=== PATIENT | female | born 2000 | race Caucasian/White ===

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

== ENCOUNTER → 2022-12-13 | Outpatient (CLI) | payer OTHER ==
[2022-12-13 15:32] LABS: HEMATOCRIT 39.8 % (36.0-47.0); MEAN CORPUSCULAR HEMOGLOBIN 28.1 pg (27.0-33.0); MEAN CORPUSCULAR HGB CONC 32.7 g/dl (32.0-36.5); MEAN CORPUSCULAR VOLUME 86.1 fl (80.0-96.0); PLATELET COUNT, AUTOMATED 272 10^3/uL (150-450); RED BLOOD COUNT 4.62 10^6/uL (4.00-5.40); WHITE BLOOD COUNT 9.9 10^3/uL (4.0-10.0)
[2022-12-13 16:48] LABS: HIV 1&2 SCREEN ATELLICA NEGATIVE (NEGATIVE)
[2022-12-13 18:49] LABS: GC DNA AMPLIFICATION NEGATIVE (NEGATIVE)
== END ==
LOC: M PLALAB 13:11
PROVIDERS: ATTEND Specialist
DX: Z34.01 Encounter for supervision of normal first pregnancy, first trimester (principal)

== ENCOUNTER 2023-02-18 19:32 | Outpatient (CLI) | payer OTHER ==
[~2023-02-18] VITALS: Ht 154.9 cm; Wt 53.8 kg
[2023-02-18] MEDS ORDERED: PRENTAB9 PO (19:47)
[2023-02-18 19:48] VITALS: BP 123/80
[2023-02-18] MEDS ORDERED: HOME MED LIST COMPLETE! XX SCH (19:50)
== END 2023-02-18 20:06 | disposition home or self-care (01) ==
LOC: M LDO 19:32
PROVIDERS: ATTEND Obstetrics & Gynecology
DX: O36.8120 Decreased fetal movements, second trimester, not applicable or unspecified (principal); Z04.1 Encounter for examination and observation following transport accident; Z3A.20 20 weeks gestation of pregnancy
CPT/HCPCS: 59025; 76815; G0463

== ENCOUNTER → 2023-02-21 | Outpatient (CLI) | payer OTHER ==
[~2023-02-21] MED LIST changes: +PRENTAB9 PO
== END ==
LOC: M WHC 10:29
PROVIDERS: ATTEND Obstetrics & Gynecology
DX: Z34.92 Encounter for supervision of normal pregnancy, unspecified, second trimester (principal)

== ENCOUNTER → 2023-05-02 | Outpatient (CLI) | payer OTHER ==
[2023-05-02 14:01] LABS: HEMATOCRIT 30.9 % (36.0-47.0); HEMOGLOBIN 9.9 g/dl (12.0-15.5); MEAN CORPUSCULAR HEMOGLOBIN 28.2 pg (27.0-33.0); PLATELET COUNT, AUTOMATED 216 10^3/uL (150-450); RED BLOOD COUNT 3.51 10^6/uL (4.00-5.40); WHITE BLOOD COUNT 13.5 10^3/uL (4.0-10.0)
[2023-05-02 15:18] LABS: GC DNA AMPLIFICATION NEGATIVE (NEGATIVE)
== END ==
LOC: M PLALAB 10:31
PROVIDERS: ATTEND Advanced Practice Midwife
DX: Z34.02 Encounter for supervision of normal first pregnancy, second trimester (principal)

== ENCOUNTER 2023-05-07 16:00 | Outpatient (CLI) | payer OTHER ==
[~2023-05-07] VITALS: Ht 154.9 cm; Wt 55.0 kg
[2023-05-07 16:12] VITALS: BP 121/70; O2SAT 99
[2023-05-07] MEDS ORDERED: LACTATED RINGER'S 1000 ML IV ONE (16:35)
[2023-05-07] MEDS ORDERED: LR 1,000 ML IV SCH (16:40)
[2023-05-07 16:58] LABS: HEMATOCRIT 30.8 % (36.0-47.0); HEMOGLOBIN 9.9 g/dl (12.0-15.5); MEAN CORPUSCULAR HEMOGLOBIN 27.5 pg (27.0-33.0); MEAN CORPUSCULAR HGB CONC 32.1 g/dl (32.0-36.5); MEAN CORPUSCULAR VOLUME 85.6 fl (80.0-96.0); PLATELET COUNT, AUTOMATED 213 10^3/uL (150-450); WHITE BLOOD COUNT 13.9 10^3/uL (4.0-10.0)
[2023-05-07] MEDS ORDERED: HOME MED LIST COMPLETE! XX SCH (17:00)
[2023-05-07 17:28] LABS: INR 1.13; PROTHROMBIN TIME 14.1 SECONDS (12.5-14.5)
[2023-05-07 17:29] LABS: PARTIAL THROMBOPLASTIN TIME 27.8 SECONDS (24.8-34.2)
[2023-05-07 18:00] VITALS: BP 132/72
== END 2023-05-07 19:41 | disposition home or self-care (01) ==
LOC: M LDO 16:00
PROVIDERS: ATTEND Advanced Practice Midwife
DX: O99.810 Abnormal glucose complicating pregnancy (principal); Z88.6 Allergy status to analgesic agent; Z04.1 Encounter for examination and observation following transport accident; V43.92XA Unspecified car occupant injured in collision with other type car in traffic accident, initial encounter; Y92.9 Unspecified place or not applicable; Z3A.31 31 weeks gestation of pregnancy
CPT/HCPCS: 59025; 76815; 76819; 76820; 85027; 85384; 85460; 85610; 85730; G0463

== ENCOUNTER 2023-05-07 19:52 | Emergency (ER) | payer OTHER ==
[~2023-05-07] VITALS: Ht 154.9 cm; Wt 54.0 kg
[2023-05-07 20:01] VITALS: BP 127/68; TEMP 97; O2SAT 98
== END 2023-05-07 21:16 | disposition left against medical advice (07) ==
LOC: M ED 19:52
DX: Z53.21 Procedure and treatment not carried out due to patient leaving prior to being seen by health care provider (principal)

== ENCOUNTER → 2023-05-16 | Outpatient (CLI) | payer OTHER | LOC: M LAB 08:26 | PROVIDERS: ATTEND Advanced Practice Midwife | DX: O99.810 Abnormal glucose complicating pregnancy (principal) ==

== ENCOUNTER 2023-06-11 08:22 | Inpatient (IN) | payer MEDICAID, OTHER ==
[~2023-06-11] VITALS: Ht 154.9 cm; Wt 63.5 kg
[2023-06-11] VITALS (13 sets, daily range): BP systolic 126–156; BP diastolic 71–106; O2SAT 94–98
[2023-06-11] MEDS ORDERED: IRON27TA2 PO (08:56)
[2023-06-11] MEDS ORDERED: HOME MED LIST COMPLETE! XX SCH (09:10)
[2023-06-11] MEDS ORDERED: LACTATED RINGER'S 1000 ML IV STA (09:17)
[2023-06-11] MEDS ORDERED: BETAMETHASONE SOLUSPAN 6MG/ML 5ML VIAL IM ONE (09:20)
[2023-06-11] MEDS ORDERED: LR 1,000 ML IV SCH (09:20)
[2023-06-11] MEDS ORDERED: LIDOCAINE 1% MDV 20ML VIAL INFIL PRN (09:20)
[2023-06-11] MEDS ORDERED: CARBOPROST TROMETHAMINE 250 MCG/ML AMP IM PRN (09:20)
[2023-06-11] MEDS ORDERED: TRANEXAMIC ACID INJection 1,000 MG in NS 100 ML IV PRN (09:20)
[2023-06-11] MEDS ORDERED: OXYTOCIN DRIP 30 UNITS in IV 1 EA IV PRN ×4 (09:20)
[2023-06-11] MEDS ORDERED: OXYTOCIN INJ 10UNITS/ML 1ML VIAL IM PRN (09:20)
[2023-06-11 09:54] LABS: HEMATOCRIT 36.9 % (36.0-47.0); HEMOGLOBIN 12.3 g/dl (12.0-15.5); MEAN CORPUSCULAR HEMOGLOBIN 28.4 pg (27.0-33.0); MEAN CORPUSCULAR HGB CONC 33.3 g/dl (32.0-36.5); MEAN CORPUSCULAR VOLUME 85.2 fl (80.0-96.0); PLATELET COUNT, AUTOMATED 180 10^3/uL (150-450); RED BLOOD COUNT 4.33 10^6/uL (4.00-5.40)
[2023-06-11 10:20] LABS: LDH LACTATE DEHYDROGENASE 219 U/L (120-246)
[2023-06-11 10:21] LABS: ALT/SGPT 14 U/L (7.0-40); AST/SGOT 23 U/L (<34); BILIRUBIN,TOTAL 0.4 MG/DL (0.3-1.2); CREATININE FOR GFR 0.54 MG/DL (0.55-1.30); GLOMERULAR FILTRATION RATE > 60.0 (>60)
[2023-06-11 11:01] LABS: URIC ACID 5.2 MG/DL (3.1-7.8)
[2023-06-11] MEDS ORDERED: ACETAMINOPHEN 500 MG TAB PO PRN (11:25)
[2023-06-11] MEDS ORDERED: RHOGAM 300MCG (1500IU) INJ IM SCH (11:25)
[2023-06-11] MEDS ORDERED: DIBUCAINE 1% OINTMENT 30GM TOP PRN (11:25)
[2023-06-11] MEDS ORDERED: DOCUSATE SODIUM 100MG CAPSULE PO PRN (11:25)
[2023-06-11] MEDS ORDERED: ACETAMINOPHEN TAB 650MG DOSE (2X325MG) PO PRN (11:25)
[2023-06-11] MEDS ORDERED: IBUPROFEN 600MG TAB PO PRN (11:25)
[2023-06-12 06:00] VITALS: BP 129/80; O2SAT 98
[2023-06-12] MEDS: PRENATAL VITAMINS CHEWABLE TABLET PO SCH (08:49)
[2023-06-12 18:00] VITALS: BP 129/73; O2SAT 96
[2023-06-13 06:00] VITALS: BP 134/80
[2023-06-13] MEDS: PRENATAL VITAMINS CHEWABLE TABLET PO SCH (08:44)
[2023-06-13] MEDS ORDERED: MEASLES,MUMPS,RUBELLA VACCINE INJ (MMR-II) SC.IMMUN ONE (09:00)
== END 2023-06-13 14:52 | disposition home or self-care (01) | DRG 560 ==
LOC: M LDO 08:22 → M LDI 09:16 → M OBS 14:30
PROVIDERS: ADMIT Advanced Practice Midwife; ATTEND Advanced Practice Midwife
PROC: 10E0XZZ Delivery of Products of Conception, External Approach (ICD-10-PCS; principal; 2023-06-11)
PROC: 0HQ9XZZ Repair Perineum Skin, External Approach (ICD-10-PCS; 2023-06-11)
DX: O60.14X0 Preterm labor third trimester with preterm delivery third trimester, not applicable or unspecified (principal); Z3A.36 36 weeks gestation of pregnancy; Z88.6 Allergy status to analgesic agent; O24.425 Gestational diabetes mellitus in childbirth, controlled by oral hypoglycemic drugs; Z37.0 Single live birth; O69.3XX0 Labor and delivery complicated by short cord, not applicable or unspecified; O70.0 First degree perineal laceration during delivery

== ENCOUNTER → 2023-09-19 | Outpatient (REF) | payer SELFPAY ==
[~2023-09-19] MED LIST changes: +IRON27TA2 PO
[2023-09-19 16:57] LABS: THYROID STIMULATING HORMONE 1.324 uIU/ML (0.55-4.78)
[2023-09-19 16:59] LABS: HEMOGLOBIN A1c 5.8 % (4.0-6.0)
[2023-09-19 17:19] LABS: BASO % 0.3 % (0.0-1.0); EOS # 0.2 10^3/uL (0.0-0.5); EOS % 1.7 % (0.0-3.0); HEMATOCRIT 43.4 % (36.0-47.0); HEMOGLOBIN 13.6 g/dl (12.0-15.5); LYMPH # 2.5 10^3/uL (1.5-5.0); LYMPH % 28.8 % (24.0-44.0); MEAN CORPUSCULAR HEMOGLOBIN 27.4 pg (27.0-33.0); MEAN CORPUSCULAR HGB CONC 31.3 g/dl (32.0-36.5); MEAN CORPUSCULAR VOLUME 87.3 fl (80.0-96.0); MONO # 0.5 10^3/uL (0.0-0.8); MONO % 5.9 % (2.0-8.0); NEUTROPHILS # 5.5 10^3/uL (1.5-8.5); NEUTROPHILS % 63.2 % (36.0-66.0); PLATELET COUNT, AUTOMATED 335 10^3/uL (150-450); RED BLOOD COUNT 4.97 10^6/uL (4.00-5.40); WHITE BLOOD COUNT 8.7 10^3/uL (4.0-10.0)
== END ==
LOC: M LAB REF 16:31
PROVIDERS: ATTEND Pediatrics
DX: Z86.32 Personal history of gestational diabetes (principal); D64.9 Anemia, unspecified

== ENCOUNTER → 2024-02-10 | Outpatient (REF) | payer MEDICAID | LOC: M SFHCWAGY 09:21 | PROVIDERS: ATTEND Advanced Practice Midwife | DX: Z12.4 Encounter for screening for malignant neoplasm of cervix (principal) ==